=== PATIENT | female | born 1985 | race Two or more races ===

== ENCOUNTER 2023-12-25 22:10 | Emergency (ER) | payer BC, OTHER ==
[~2023-12-25] VITALS: Ht 134.6 cm; Wt 63.2 kg
[2023-12-25 23:48] LABS: Basophils # (auto) 0 10 ^3/uL (0-0.2); Basophils % (auto) 0.3 % (0.0-2.0); Eosinophils # (auto) 0.1 10 ^3/uL (0-0.8); Eosinophils % (auto) 0.6 % (0.0-7.0); Hemoglobin 11.5 g/dL (12.2-16.2); Lymphocytes # (auto) 1.4 10 ^3/uL (0.4-5.4); Lymphocytes % (auto) 10.5 % (10.0-50.0); Mean Corpuscular Hemoglobin 28.6 pg (28.0-32.0); Mean Corpuscular Hgb Conc. 32.8 g/dL (32.0-36.0); Mean Corpuscular Volume 87.1 fL (80.0-100.0); Monocytes # (auto) 1.1 10 ^3/uL (0-1.3); Neutrophils # (auto) 10.6 10 ^3/uL (1.6-8.6); Neutrophils % (auto) 80.6 % (37.0-80.0); Red Blood Cells 4.02 10^6/uL (4.0-5.20); Red Cell Distribution Width 13.8 % (11.8-14.3); White Blood Cell 13.1 10^3/uL (4.4-10.8)
[2023-12-26 00:01] LABS: Alanine Aminotransferase 19 U/L (7-40); Albumin 4.4 g/dL (3.2-4.8); Alkaline Phosphatase 67 U/L (46-116); Anion Gap 7 (5-15); Aspartate Aminotransferase 10 U/L (13-40); BUN/Creatinine Ratio 13.6 (10.0-20.0); Bilirubin, Total 0.8 mg/dL (0.2-1.0); Blood Urea Nitrogen 8 mg/dL (9-23); Calcium 9.7 mg/dL (8.7-10.4); Carbon Dioxide 29 mmol/L (20-30); Chloride 102 mmol/L (98-107); Glucose 129 mg/dL (74-106); Lipase 45 U/L (12-53); Potassium 4.1 mmol/L (3.5-5.1); Sodium 138 mmol/L (136-145)
[2023-12-26 00:02] LABS: Total Protein 7.6 g/dL (5.7-8.2)
[2023-12-26 00:04] LABS: Lactic Acid w/Reflex 2.1 mmol/L (0.4-2.0)
[2023-12-26] MEDS: ONDANSETRON ODT 4 MG TAB PO ONE (00:49)
[2023-12-26] MEDS: HYDROcodone-ACET 10/325MG TAB PO ONE (00:49)
[2023-12-26 00:53] VITALS: BP 105/47; PULSE 69; RESP 20; TEMP 99; O2SAT 96
[2023-12-26] MEDS ORDERED: IBUP1TAB5 PO (01:18)
[2023-12-26] MEDS ORDERED: ACE3T PO (01:18)
[2023-12-26] MEDS ORDERED: ZOFR4T PO (01:18)
== END 2023-12-26 01:27 | disposition home or self-care (01) ==
LOC: ER 22:10
DX: K76.0 Fatty (change of) liver, not elsewhere classified (principal)
CPT/HCPCS: 36415; 74176; 80053; 83605; 83690; 84484; 85025; 99284; Q0162